=== PATIENT | male | born 1980 | race Caucasian/White ===

== ENCOUNTER 2017-02-17 23:27 | Emergency (ER) | payer SELFPAY ==
[~2017-02-17] VITALS: Ht 172.7 cm; Wt 74.8 kg
[2017-02-18] MEDS ORDERED: FOLIC ACID 1 MG, THIAMINE HCL 100 MG, MVI, ADULT NO.1 10 ML in DEXTROSE 5% WATER 1,000 ML IV ONE ×4 (00:15)
[2017-02-18 00:44] LABS: BASOPHILS % 0.8 % (0.0-2.0); EOSINOPHILS % 0.7 % (0.0-5.0); HEMATOCRIT. 43.4 % (42.0-52.0); HEMOGLOBIN. 15.1 g/dL (14.0-18.0); LYMPHOCYTES % 20.2 % (20.0-50.0); MEAN CORPUSCULAR HEMOGLOBIN 31.9 pg (28.0-32.0); MEAN CORPUSCULAR VOLUME 91.5 fL (80.0-94.0); MEAN PLATELET VOLUME 8.5 fl (7.4-10.4); MONOCYTES % 10.7 % (2.0-8.0); NEUTROPHILS % 67.6 % (40.0-76.0); PLATELET 205 x1000/uL (130-400); RED BLOOD CELL COUNT 4.74 mill/uL (4.7-6.1); RED CELL DISTRIBUTION WIDTH 12.6 % (11.6-14.6)
[2017-02-18 00:48] LABS: CHLORIDE 104 mEq/L (98-107)
[2017-02-18 00:59] LABS: CARBON DIOXIDE 21 mEq/L (21-32); ETHANOL BLOOD 37 mg/dL
[2017-02-18] MEDS ORDERED: POTASSIUM CHLORIDE 20MEQ TABLET SR PO ONE (01:45)
[2017-02-18] MEDS ORDERED: LORAZEPAM 1MG TABLET PO ONE (02:15)
[2017-02-18 03:02] VITALS: BP 119/65
== END 2017-02-18 03:15 | disposition home or self-care (01) ==
LOC: ER 23:34
DX: F10.10 Alcohol abuse, uncomplicated (principal); Y90.1 Blood alcohol level of 20-39 mg/100 ml; F41.9 Anxiety disorder, unspecified; J45.909 Unspecified asthma, uncomplicated
CPT/HCPCS: 36415; 80053; 85025; 99284; G0482; J3411; J3490; J7070